=== PATIENT | female | born 1955 | race Caucasian/White ===

== ENCOUNTER 2016-11-30 15:09 | Inpatient (IN) | payer OTHER ==
--- NOTE | 2016-11-30 15:29 | EDPHY ---
H & P Stated Complaint: 3 day hx chest pressure,L arm pain. Saw PCP and sent here for eval Time Seen by Provider: 11/30/16 15:21 HPI/ROS: CHIEF COMPLAINT: Chest pain HISTORY OF PRESENT ILLNESS: The patient is a 61 y/o female arriving at the referral of her PCP complaining of chest pain for the last 3 days. Initially, she noticed chest heaviness. By the second day, her pain radiated down her left arm into her elbow and was associated with nausea. Today she's had continued chest heaviness that feels like an "elephant on my chest" with associated sensation of heartburn, though she has no history of GERD. The pain currently radiates to her left scapula and left jaw. She notes associated exertional shortness of breath and dizziness with episodes of diaphoresis. She has never experienced these symptoms previously. No previous cardiac history or respiratory disease. No recent trauma or illness, leg pain, leg swelling, recent travel, or recent surgery. She received aspirin from her PCP directly before coming to the ED. REVIEW OF SYSTEMS: Constitutional: denies: chills, fever, recent illness, recent injury EENTM: denies: blurred vision, double vision, nose congestion Respiratory: denies: cough, shortness of breath Cardiac: see HPI Gastrointestinal/Abdominal: see HPI Genitourinary: denies: dysuria, frequency, hematuria, pain Musculoskeletal: denies: joint pain, muscle pain Skin: denies: lesions, rash, jaundice, bruising Neurological: see HPI Hematologic/Lymphatic: denies: blood clots, easy bleeding, easy bruising Immunologic/allergic: denies: HIV/AIDS, transplant PRIOR MEDICAL HISTORY: Fibromyalgia SOCIAL HISTORY: Non-smoker, at bedside, PCP: Dr. Rush EXAM: GENERAL: Well-appearing, obese and in no acute distress. HEAD: Atraumatic, normocephalic. EYES: Pupils equal round and reactive to light, extraocular movements intact, sclera anicteric, conjunctiva are normal. ENT: TMs normal, nares patent, oropharynx clear without exudates. Moist mucous membranes. NECK: Normal range of motion, supple without lymphadenopathy or JVD. LUNGS: Breath sounds clear to auscultation bilaterally and equal. No wheezes rales or rhonchi. HEART: Regular rate and rhythm without murmurs, rubs or gallops. ABDOMEN: Soft, nontender, normoactive bowel sounds. No guarding, no rebound. No masses appreciated. BACK: No CVA tenderness, no spinal tenderness, step-offs or deformities EXTREMITIES: Normal range of motion, no pitting or edema. No clubbing or cyanosis. NEUROLOGICAL: Cranial nerves II through XII grossly intact. Normal speech, normal gait. 5/5 strength, normal movement in all extremities, normal sensation PSYCH: Normal mood, normal affect. SKIN: Warm, dry, normal turgor, no visible rashes or lesions. Source: Patient - Personal History Current Tetanus Diphtheria and Acellular Pertussis (TDAP): Yes - Medical/Surgical History Hx Asthma: No Hx Chronic Respiratory Disease: No Hx Diabetes: No Hx Cardiac Disease: No Hx Renal Disease: No Hx Cirrhosis: No Hx Alcoholism: No Hx HIV/AIDS: No Hx Splenectomy or Spleen Trauma: No Other PMH: fibromyalgia - Family History Significant Family History: No pertinent family hx - Social History Smoking Status: Never smoked Alcohol Use: Sober Drug Use: None Constitutional: Initial Vital Signs Temperature (C) 36.7 C 11/30/16 15:10 Heart Rate 64 11/30/16 15:10 Respiratory Rate 18 11/30/16 15:10 Blood Pressure 159/97 H 11/30/16 15:10 O2 Sat (%) 94 11/30/16 15:10 O2 Delivery Mode Room Air O2 (L/minute) 96 Allergies/Adverse Reactions: ketorolac tromethamine [From Toradol] Allergy (Severe, Verified 11/30/16 15:16) Anaphylaxis naproxen [From Naprosyn] Allergy (Severe, Verified 11/30/16 15:16) Anaphylaxis Home Medications: Medication Instructions Recorded DULoxetine [Cymbalta 30 MG (*)] 30 mg PO HS 11/30/16 Estrogens,Conjugated [Premarin 0.3 0.3 mg PO HS 11/30/16 MG (*)] Ibuprofen [Motrin (*)] 400 mg PO DAILY PRN 11/30/16 Levothyroxine [Synthroid 100 mcg 100 mcg PO DAILY06 11/30/16 (*)] Pregabalin [Lyrica] 150 mg PO HS 11/30/16 Medical Decision Making - Diagnostics EKG Interpretation: The 12 lead EKG was interpreted by myself. Sinus rhythm rate 55 without ischemic changes. See hard copy and/or "tracemaster" electronic copy for interpretation. Imaging: X-ray: [Chest x-ray] was obtained. I viewed the images myself on the PACS system. My interpretation of the images is: nothing acute. The radiologist interpretation is nothing acute per Dr. Farias. I discussed the x-ray findings with the [patient]. ED Course/Re-evaluation: MDM: This is a healthy 61 y/o female presenting with a 3-day history of chest heaviness. She endorses radiating arm, jaw, and neck pain with associated nausea , diaphoresis, exertional dyspnea, and dizziness. She denies any known cardiac risk factors. Plan for full cardiac workup including EKG, chest x-ray, IV, labs including CBC, CHEM, troponin, lipase, LFTs, d-dimer. 0.4mg SL nitro administered. Patient received aspirin from her PCP prior to arrival in the ED. 1620: Troponin negative, d-dimer negative, chest x-ray negative. Discussed these findings with the patient and recommended admission for provocative cardiac testing due to concerning story. She agrees to admission. Her chest pain has resolved at this time but she continues to have arm pain. 4mg IV Morphine administered. Dr. Neil accepts admission. DIFFERENTIALS: Partial list of the Differential diagnosis considered include but were not limited to: Acute coronary disease, anxiety, PE, pneumonia and although unlikely based on the history and physical exam, I also considered pneumothorax , dissection, pulmonary hypertension. - Data Points Laboratory Results: Laboratory Results 12/01/16 04:45 12/01/16 04:45 Medications Given: Discontinued Medications Sodium Chloride (Ns) 1,000 mls @ 0 mls/hr IV ONCE ONE PRN Reason: Wide Open Stop: 11/30/16 15:31 Last Admin: 11/30/16 15:30 Dose: 1,000 mls Morphine Sulfate (Morphine) 4 mg IVP EDNOW ONE Stop: 11/30/16 16:29 Last Admin: 11/30/16 17:10 Dose: 4 mg Nitroglycerin (Nitrostat) 0.4 mg SL Q5M PRN PRN Reason: Chest Pain Stop: 11/30/16 15:41 Last Admin: 11/30/16 15:39 Dose: 0.4 mg Departure - Departure Disposition: [facility] Inpatient Acute Clinical Impression: Chest pain Qualifiers: Chest pain type: other chest pain Qualifier Code: (R07.89) Other chest pain Condition: Fair Report Scribed for: Benigno Marvin Report Scribed by: Sydni Damico Date of Report: 11/30/16 Time of Report: 15:33
[2016-11-30] MEDS ORDERED: NS 1,000 ML IV ONE (15:30)
[2016-11-30] MEDS ORDERED: NITROGLYCERIN 0.4 MG BTL SL PRN ×2 (15:30→18:01)
--- NOTE | 2016-11-30 15:32 | CPEKG ---
Heart Rate: 55 RR Interval: 1091 P-R Interval: 140 QRSD Interval: 112 QT Interval: 424 QTC Interval: 406 P [place]: 56 QRS [place]: 63 T Wave [place]: 46 EKG Severity - ABNORMAL ECG - EKG Impression: SINUS RHYTHM EKG Impression: NONSPECIFIC INTRAVENTRICULAR CONDUCTION DELAY EKG Impression: BORDERLINE INFERIOR Q WAVES Electronically Signed By: Benigno Marvin 30-Nov-2016 15:41:19
[2016-11-30 15:49] LABS: % IMMATURE GRANULYOCYTES 0.6 % (0.0-1.1); ABSOLUTE IMMATURE GRANULOCYTES 0.04 10^3/uL (0.00-0.10); ADD DIFF? NO; ADD MORPH? NO; ADD SCAN? NO; ATYPICAL LYMPHOCYTE FLAG 10 (0-99); FRAGMENT RBC FLAG 0 (0-99); HEMATOCRIT 42.6 % (38.0-47.0); HEMOGLOBIN 14.6 g/dL (12.6-16.3); LEFT SHIFT FLG 0 (0-99); LIPEMIA HEMOLYSIS FLAG 90 (0-99); MEAN CELL HEMOGLOBIN CONCENTR. 34.3 g/dL (32.4-36.7); MEAN CELL VOLUME 90.4 fL (81.5-99.8); PLATELET CLUMPS FLAG 0 (0-99); PLATELET COUNT 217 10^3/uL (150-400); RED BLOOD CELL COUNT 4.71 10^6/uL (4.18-5.33); RED CELL DISTRIBUTION WIDTH 13.2 % (11.5-15.2)
[2016-11-30 16:07] LABS: ALANINE AMINOTRANSFERASE 65 IU/L (9-52); ALBUMIN 4.3 g/dL (3.5-5.0); ALKALINE PHOSPHATASE 80 IU/L (38-126); ANION GAP 12 mEq/L (8-16); ASPARTATE AMINOTRANSFERASE 48 IU/L (14-46); BILIRUBIN,TOTAL 0.5 mg/dL (0.1-1.4); BILIRUBIN-CONJUGATED 0.2 mg/dL (0.0-0.5); BILIRUBIN-UNCONJUGATED 0.3 mg/dL (0.0-1.1); CALCIUM 9.5 mg/dL (8.5-10.4); CARBON DIOXIDE 26 mEq/l (22-31); CHLORIDE 102 mEq/L (97-110); CREATININE 0.8 mg/dL (0.6-1.0); GLOMERULAR FILTRATION RATE > 60; GLUCOSE 87 mg/dL (70-100); SODIUM 140 mEq/L (134-144); TOTAL PROTEIN 7.2 g/dL (6.3-8.2)
--- NOTE | 2016-11-30 16:10 | DX ---
PA and lateral chest History: Chest pain and pressure. Comparison: None available. Findings: The lungs are clear. There is no pneumothorax or pleural effusion. Heart size is upper no rmal. Degenerative changes are present in the spine. Impression: No acute findings in the chest.
[2016-11-30 16:18] LABS: TROPONIN I < 0.012 ng/mL (0-0.034)
[2016-11-30] MEDS ORDERED: ONDANSETRON DISINTEGRATING 4 MG TAB PO PRN (18:01)
[2016-11-30] MEDS ORDERED: ONDANSETRON 4 MG/2 ML VIAL IVP PRN (18:01)
--- NOTE | 2016-11-30 19:38 | PDGENHP ---
History and Physical - Chief Complaint Acute chest pain - History of Present Illness PCP: Dr. Rush HPI: 61-year-old female presenting with acute chest pain characterized as a pressure sensation with associated jaw pain located in her right jaw and elbow pain located in her left elbow as well as shortness of breath and diaphoresis exacerbated by exertion. Onset of symptoms was approximately 3 days ago and duration has been intermittent thereafter. Patient's pain in her elbow also seems to exacerbate nausea symptoms and all of the symptoms were present when patient presented to the emergency department from her PCP's office today the symptoms were alleviated by sublingual nitroglycerin. She reports that she is normally able to walk up a regular flight of stairs without becoming winded and this has changed over the past couple days such that ambulating upstairs now leaves the patient significantly short of breath. Patient denies ever experiencing similar symptoms in the past. History Information - Allergies/Home Medication List Allergies/Adverse Reactions: ketorolac tromethamine [From Toradol] Allergy (Severe, Verified 11/30/16 15:16) Anaphylaxis naproxen [From Naprosyn] Allergy (Severe, Verified 11/30/16 15:16) Anaphylaxis Home Medications: DULoxetine [Cymbalta 30 MG (*)] 30 mg PO HS 11/30/16 [Last Taken 11/29/16] Estrogens,Conjugated [Premarin 0.3 MG (*)] 0.3 mg PO HS 11/30/16 [Last Taken ] Ibuprofen [Motrin (*)] 400 mg PO DAILY PRN 11/30/16 [Last Taken 11/25/16] Levothyroxine [Synthroid 100 mcg (*)] 100 mcg PO DAILY06 11/30/16 [Last Taken ] Pregabalin [Lyrica] 150 mg PO HS 11/30/16 [Last Taken 11/29/16] I have personally reviewed and updated: family history, medical history, social history, surgical history - Past Medical History hyperlipidemia (Patient has been intolerant to statins with myositis her symptoms) Additional medical history: Chronic neuropathic pain - Surgical History Reports: no pertinent surgical hx - Family History Additional family history: Father with myocardial infarction and heavy smoking history in his 60s - Social History Smoking Status: Never smoked Alcohol Use: Rarely Drug Use: None Additional social history: Normally independent in her ADLs Review of Systems ROS: 10pt was reviewed & negative except for what was stated in HPI & below Cardiac: Reports: chest pain Respiratory: Reports: shortness of breath Gastrointestinal: Reports: nausea Muscolosketal: Reports: other (Elbow pain) Physical Exam Temp Pulse Resp BP Pulse Ox 36.5 C 53 L 15 140/85 H 95 11/30/16 18:10 11/30/16 18:10 11/30/16 18:10 11/30/16 18:10 11/30/16 18:10 O2 (L/minute) 2 Constitutional: no apparent distress, appears nourished, not in pain, obese, No uncomfortable Eyes: PERRL, anicteric sclera, EOMI Ears, Nose, Mouth, Throat: moist mucous membranes, hearing normal, ears appear normal, no oral mucosal ulcers Cardiovascular: regular rate and rhythym, no murmur, rub, or gallop, No edema Respiratory: no respiratory distress, no rales or rhonchi, clear to auscultation Gastrointestinal: normoactive bowel sounds, soft, non-tender abdomen, no palpable masses Skin: warm, normal color, no rashes or abrasions, no fluctuance, no induration, No mottled Musculoskeletal: other (Full range of motion bilateral shoulders without any pain elicited, full range of motion left elbow without any pain, no elbow effusion or tenderness to palpation) Neurologic: AAOx3, sensation intact bilaterally, weakness Psychiatric: interacting appropriately, not anxious, not encephalopathic, thought process linear Lab Data & Imaging Review 11/30/16 15:40 11/30/16 15:40 WBC 7.12 10^3/uL (3.80-9.50) 11/30/16 15:40 RBC 4.71 10^6/uL (4.18-5.33) 11/30/16 15:40 Hgb 14.6 g/dL (12.6-16.3) 11/30/16 15:40 Hct 42.6 % (38.0-47.0) 11/30/16 15:40 MCV 90.4 fL (81.5-99.8) 11/30/16 15:40 MCH 31.0 pg (27.9-34.1) 11/30/16 15:40 MCHC 34.3 g/dL (32.4-36.7) 11/30/16 15:40 RDW 13.2 % (11.5-15.2) 11/30/16 15:40 Plt Count 217 10^3/uL (150-400) 11/30/16 15:40 MPV 10.0 fL (8.7-11.7) 11/30/16 15:40 Neut % (Auto) 49.2 % (39.3-74.2) 11/30/16 15:40 Lymph % (Auto) 39.5 % (15.0-45.0) 11/30/16 15:40 [place] % (Auto) 8.7 % (4.5-13.0) 11/30/16 15:40 Eos % (Auto) 1.4 % (0.6-7.6) 11/30/16 15:40 Baso % (Auto) 0.6 % (0.3-1.7) 11/30/16 15:40 Nucleat RBC Rel Count 0.0 % (0.0-0.2) 11/30/16 15:40 Absolute Neuts (auto) 3.51 10^3/uL (1.70-6.50) 11/30/16 15:40 Absolute Lymphs (auto) 2.81 10^3/uL (1.00-3.00) 11/30/16 15:40 Absolute Monos (auto) 0.62 10^3/uL (0.30-0.80) 11/30/16 15:40 Absolute Eos (auto) 0.10 10^3/uL (0.03-0.40) 11/30/16 15:40 Absolute Basos (auto) 0.04 10^3/uL (0.02-0.10) 11/30/16 15:40 Absolute Nucleated RBC 0.00 10^3/uL (0-0.01) 11/30/16 15:40 Immature Gran % 0.6 % (0.0-1.1) 11/30/16 15:40 Immature Gran # 0.04 10^3/uL (0.00-0.10) 11/30/16 15:40 D-Dimer 0.31 ug/mLFEU (0.00-0.50) 11/30/16 15:40 Sodium 140 mEq/L (134-144) 11/30/16 15:40 Potassium 4.0 mEq/L (3.5-5.2) 11/30/16 15:40 Chloride 102 mEq/L (97-110) 11/30/16 15:40 Carbon Dioxide 26 mEq/l (22-31) 11/30/16 15:40 Anion Gap 12 mEq/L (8-16) 11/30/16 15:40 BUN 14 mg/dL (7-23) 11/30/16 15:40 Creatinine 0.8 mg/dL (0.6-1.0) 11/30/16 15:40 Estimated GFR > 60 11/30/16 15:40 Glucose 87 mg/dL (70-100) 11/30/16 15:40 Calcium 9.5 mg/dL (8.5-10.4) 11/30/16 15:40 Total Bilirubin 0.5 mg/dL (0.1-1.4) 11/30/16 15:40 Conjugated Bilirubin 0.2 mg/dL (0.0-0.5) 11/30/16 15:40 Unconjugated Bilirubin 0.3 mg/dL (0.0-1.1) 11/30/16 15:40 AST 48 IU/L (14-46) H 11/30/16 15:40 ALT 65 IU/L (9-52) H 11/30/16 15:40 Alkaline Phosphatase 80 IU/L (38-126) 11/30/16 15:40 Troponin I < 0.012 ng/mL (0-0.034) 11/30/16 15:40 Total Protein 7.2 g/dL (6.3-8.2) 11/30/16 15:40 Albumin 4.3 g/dL (3.5-5.0) 11/30/16 15:40 Lipase 154.0 IU/L (23-300) 11/30/16 15:40 Visualized and Interpreted EKG results: Yes EKG Interpretation: Positive for: other (Normal sinus rhythm with intraventricular conduction delay) Assessment & Plan Assessment: 61-year-old female presents with acute chest pain in the setting of hyperlipidemia Plan: 1. Chest pain. Acute, new problem this provider, further workup indicated. Potential etiologies include stable versus unstable angina versus neuropathic pain syndrome, patient does provide a story which is highly concerning for cardiomyopathy versus angina -pulmonary embolism ruled out with D-dimer -continue cycle troponins, continue to monitor on telemetry -if enzymes negative, get a nuclear medicine Lexiscan stress test in a.m. and if ejection fraction is abnormal, then get echocardiogram -continue to monitor center pain and treat symptomatically overnight with Tylenol morphine and sublingual nitroglycerin if needed 2. Hyperlipidemia. Chronic, patient has been intolerant to statins in the past and she is currently attempting dietary modification -reviewed outside records (LDL from 03/30/16 174) -repeat lipid panel Diet. Regular diet with NPO after midnight Prophylaxis. Low risk, SCDs Code. Full Disposition. Anticipated discharge is 12/01/2016, pending further workup and stabilization of the above. I have discussed the patient's presentation with Dr. Marvin and I both agree that the patient has a highly concerning story for possible cardiac cause of her chest discomfort warranting urgent cardiac risk stratification and admission to our [facility].
[2016-11-30] MEDS ORDERED: PREGABALIN 150 MG PO SCH (21:00)
[2016-11-30] MEDS: ACETAMINOPHEN 325 MG TAB PO PRN (21:25)
[2016-11-30] MEDS: PREGABALIN 75 MG CAP PO SCH (21:26)
[2016-11-30] MEDS: DULoxetine 30 MG CAP PO SCH (21:30)
[2016-11-30] MEDS: ESTROGENS,CONJUGATED 0.3 MG TAB PO SCH (21:31)
[2016-11-30] MEDS: TEMAZEPAM 15 MG CAP PO PRN (22:15)
[2016-12-01] MEDS: ACETAMINOPHEN 325 MG TAB PO PRN (04:45)
[2016-12-01 05:22] LABS: % IMMATURE GRANULYOCYTES 0.5 % (0.0-1.1); ABSOLUTE IMMATURE GRANULOCYTES 0.03 10^3/uL (0.00-0.10); ADD DIFF? NO; ADD MORPH? NO; ADD SCAN? NO; ATYPICAL LYMPHOCYTE FLAG 0 (0-99); FRAGMENT RBC FLAG 0 (0-99); LEFT SHIFT FLG 0 (0-99); LIPEMIA HEMOLYSIS FLAG 80 (0-99); MEAN CELL HEMOGLOBIN 31.2 pg (27.9-34.1); MEAN CELL HEMOGLOBIN CONCENTR. 33.3 g/dL (32.4-36.7); MEAN CELL VOLUME 93.5 fL (81.5-99.8); MEAN PLATELET VOLUME 10.3 fL (8.7-11.7); PLATELET CLUMPS FLAG 0 (0-99); PLATELET COUNT 218 10^3/uL (150-400); RED BLOOD CELL COUNT 4.49 10^6/uL (4.18-5.33); RED CELL DISTRIBUTION WIDTH 13.5 % (11.5-15.2)
[2016-12-01 05:46] LABS: ALANINE AMINOTRANSFERASE 60 IU/L (9-52); ALBUMIN 3.8 g/dL (3.5-5.0); ALKALINE PHOSPHATASE 70 IU/L (38-126); ANION GAP 7 mEq/L (8-16); ASPARTATE AMINOTRANSFERASE 37 IU/L (14-46); BILIRUBIN,TOTAL 0.5 mg/dL (0.1-1.4); CALCIUM 9.2 mg/dL (8.5-10.4); CARBON DIOXIDE 28 mEq/l (22-31); CHLORIDE 106 mEq/L (97-110); CHOLESTEROL 243 mg/dL (140-220); CHOLESTEROL/HDL RATIO 2.73 RATIO (1.00-4.44); CREATININE 0.7 mg/dL (0.6-1.0); GLOMERULAR FILTRATION RATE > 60; GLUCOSE 85 mg/dL (70-100); HIGH DENSITY LIPOPROTEIN 89 mg/dL (40-85); LDL/HDL RATIO 1.49 RATIO (1.00-3.22); LOW DENSITY LIPOPROTEIN 133 mg/dL (80-100); NON-HIGH DENSITY LIPOPROTEIN 154 mg/dL (90-129); POTASSIUM 4.6 mEq/L (3.5-5.2); SODIUM 141 mEq/L (134-144); TOTAL PROTEIN 6.4 g/dL (6.3-8.2); TRIGLYCERIDE 108 mg/dL (35-135); VERY LOW DENSITY LIPOPROTEINS 21 mg/dL (8-25)
[2016-12-01 05:58] LABS: TROPONIN I < 0.012 ng/mL (0-0.034)
[2016-12-01] MEDS: LEVOTHYROXINE 100 MCG TAB PO SCH ×2 (05:59→08:02)
[2016-12-01] MEDS ORDERED: REGADENOSON 0.4 MG/5 ML SYR IVP ONE (11:06)
--- NOTE | 2016-12-01 11:52 | CPR ---
[f rep st] NONINVASIVE CARDIAC PROCEDURE REPORT DATE OF PROCEDURE: 12/01/2016 PROCEDURE: Lexiscan stress test. CHIEF COMPLAINT: Chest pain. No history of known coronary artery disease. PROCEDURE IN DETAIL: After informed consent, patient received IV Lexiscan and nuclear tracer injecti on without issues or complications. She had stable vital signs, blood pressure, and rhythm throughou t. She rapidly recovered to the baseline state after her Lexiscan and nuclear tracer images. CONCLUSION: Noneventful Lexiscan tracer injections. Nuclear imaging dictated under separate report. /[id number]/MODL
[2016-12-01] MEDS: ASPIRIN 325 MG TAB PO SCH (13:57)
--- NOTE | 2016-12-01 14:18 | HOSPPROG ---
Hospitalist Progress Note Assessment/Plan: Assessment: 61-year-old female presents with acute chest pain in the setting of hyperlipidemia 1. Chest pain (resolved) -neg troponin -abnormal stress images await rest images to be done 12/02/16 2. Hyperlipidemia. Chronic, Prophylaxis. Low risk, SCDs Code. Full change to inpatient status given need for further diagnostic testing Subjective: no chest pain. no sob. feels well Objective: Vital Signs Temp Pulse Resp BP Pulse Ox 36.3 C 55 L 14 127/74 H 94 12/01/16 11:59 12/01/16 11:59 12/01/16 11:59 12/01/16 11:59 12/01/16 11:59 Laboratory Results 12/01/16 04:45 12/01/16 04:45 11/30/16 12/01/16 12/02/16 05:59 05:59 05:59 Intake Total 1000 Balance 1000 Laboratory Tests 11/30/16 11/30/16 12/01/16 15:40 22:08 04:45 Troponin I < 0.012 < 0.012 < 0.012 TSH 0.914 - Physical Exam Constitutional: no apparent distress, appears nourished, not in pain Cardiovascular: regular rate and rhythym, no murmur, rub, or gallop Respiratory: no respiratory distress, no rales or rhonchi, clear to auscultation ICD10 Worksheet Patient Problems: Problems Problem Status Diagnosed Chest pain Acute
[2016-12-01] MEDS: DULoxetine 30 MG CAP PO SCH (22:28)
[2016-12-01] MEDS: TEMAZEPAM 15 MG CAP PO PRN (22:28)
[2016-12-01] MEDS: PREGABALIN 75 MG CAP PO SCH (22:29)
[2016-12-01] MEDS: ESTROGENS,CONJUGATED 0.3 MG TAB PO SCH (22:32)
[2016-12-02] MEDS: LEVOTHYROXINE 100 MCG TAB PO SCH (07:12)
--- NOTE | 2016-12-02 11:28 | NM ---
Nuclear Medicine Myocardial Perfusion Scan Clinical History: 61-year-old female admitted with chest and jaw pain, and has had 3 negative serum t roponin levels. Rule out myocardial ischemia. Radiopharmaceutical: 26.1 mCi of IV technetium 99m sestamibi Cardiolite (stress portion), and 22.0 m Ci of IV technetium 99 sestamibi Cardiolite (rest portion) Medical Pharmaceutical: 0.4 mg of IV Lexiscan. Comparison Study: None. Technique: After the respective rest and stress sequences, images were acquired tomographically and r econstructed along the standard cardiac axes. The study was gated, and reviewed on the computer works tation using [employer] software. Findings: The post-stress and rest sequences demonstrate a relatively fixed left ventricular apical defect. In reviewing the computer data, there is equivocal damion-infarct ischemia identified on the re perfusion bull's eye quantitative data. However, the left ventricular contractility appears relativel y normal, with a computer-generated LVEF of 65%. I reviewed these images with Dr. Roselia Curiel. Impression: Essentially fixed left ventricular apical defect (with equivocal damion-infarct ischemia, and a normal left ventricular contractility. A test result has been communicated to a licensed care provider and documented in [employer], 11:18:49 A M, 12/02/2016, [employer] Message ID [id number].
[2016-12-02] MEDS ORDERED: fentaNYL 100 MCG/2 ML INJ ONE (13:10)
[2016-12-02] MEDS ORDERED: LIDOCAINE 1% 30 ML SDV ONE (13:10)
[2016-12-02] MEDS ORDERED: MIDAZOLAM 2 MG/2 ML VIAL ONE (13:10)
[2016-12-02] MEDS ORDERED: IOPAMIDOL (ISOVUE 370) 100 ML BTL IV ONE (13:11)
--- NOTE | 2016-12-02 13:35 | GCON ---
[f rep st] CONSULTATION CARDIOLOGY CONSULT. DATE OF CONSULTATION: 12/02/2016 CHIEF COMPLAINT: Chest pain. HISTORY OF PRESENT ILLNESS: We were asked by Dr. Lee to visit with Maia. The patient is a pleasa nt 61-year-old female with dyslipidemia intolerant of statins. She also has fibromyalgia. No histor y of diabetes or hypertension. She does have a family history with father having a bypass in his 50s . She reports that she has not felt well for several days. Over the past 5 days, she has noticed inter mittent chest heaviness like "an elephant sitting on my chest." This is associated with radiation of the pain to her left arm and neck, as well as a burning sensation in her chest. Symptoms were worse with exertion such as walking stairs. With exertion, she felt diaphoretic and dyspneic as well. Chidi cortez also had some associated nausea. No palpitations or syncope. No heart failure. She had presented to Dr. Rush's office, and he sent her to the ER for further evaluation given the concerning nature of her chest pain. She has been admitted for observation. Serial troponins have been negative. EKG is nonischemic. She did have a Lexiscan nuclear stress test. I personally revie wed these images with Radiology. She does have a fixed apical defect that either represents apical i nfarct with a minimal amount of infarct ischemia versus artifact. Ejection fraction is preserved. Since admission, she has had off and on chest discomfort at a much lower level. REVIEW OF SYSTEMS: A full 10-point review of systems is performed and is negative except that which is outlined in the history of present illness. She does not have any major bleeding diatheses. ALLERGIES: Ketorolac and naproxen cause anaphylaxis. She has been getting aspirin here without diff iculty. She has also been intolerant of statin. PAST MEDICAL HISTORY: 1. Dyslipidemia. 2. Hypothyroidism. 3. Fibromyalgia. 4. History of hysterectomy. OUTPATIENT MEDICATIONS: Cymbalta 30 mg daily, Lyrica 150 mg at night, ibuprofen, estrogen 0.3 mg fatemeh ly, and Synthroid 100 mcg daily. SOCIAL: Patient has a partner. He is at the bedside. She does not smoke cigarettes or drink alcoho l. FAMILY HISTORY: Father had a bypass in his 50s. PHYSICAL EXAM: VITAL SIGNS: Blood pressure 118/71, heart rate 65, oxygen saturation 94% on room air . She is afebrile. GENERAL: Well-appearing older female in no acute distress. HEENT: Sclerae are clear and free of jaundice. Mucous members are moist. CARDIOVASCULAR: JVP less than 10. Carotids equal regular rate and rhythm without murmur, rub, or gallop. LUNGS: Clear to auscultatio n bilaterally without wheezes, rhonchi, or rales. ABDOMEN: Soft, nontender, nondistended without br uits, masses or hepatosplenomegaly. EXTREMITIES: Warm and well-perfused without cyanosis, clubbing, or edema. NEURO: Alert and oriented x3 without gross focal neurologic deficits. Appropriate mood and affect. DATA: CBC is essentially normal, except for slight lymphocyte predominance. D-dimer is negative. C omprehensive metabolic panel is normal, except for slightly elevated ALT at 60. Troponin negative x3 . TSH normal. LDL 133. HDL 89. Lipase is normal. EKG reviewed by me: Sinus rhythm without ischemic changes. Chest x-ray, reviewed by me: No acute c ardiopulmonary process. Nuclear medicine stress images reviewed by me as detailed above. ASSESSMENT AND PLAN: A 61-year-old female with risk factors of overweight, dyslipidemia, family hist ory. She presents with intermittent symptoms for several days very concerning for unstable angina. Her EKG initially is nonischemic. Troponins have been negative. However, she continues to have vagu e chest discomfort. Her nuclear stress test is also not completely normal, consistent with either ar tifact or apical infarct. 1. Chest pain: Again, concerning for unstable angina. Stress is low to moderate risk. Risks, bene fits and alternatives of coronary angiogram were discussed, and she agrees to proceed. This will be performed today. She has been tolerating aspirin, but does have an anaphylactic allergy to ketorolac and naproxen. We will follow her closely for any signs of allergy. 2. Dyslipidemia: Her LDL is not at goal. She apparently has been intolerant of statins. We will r eaddress this depending on whether or not she has coronary disease based on her angiogram. 3. Hypothyroidism: TSH is normal. 4. Fibromyalgia: She states that her current symptoms are nothing like her fibromyalgia. 5. Hormone replacement therapy: She is weaning this off. I encouraged her to not be on long-term h ormone replacement therapy. Thank you for allowing us to participate in the care of Ms. Casey. We will follow with you. /[id number]/MODL
[2016-12-02] MEDS: ASPIRIN 325 MG TAB PO SCH (13:56)
[2016-12-02 14:09] LABS: INR 1.09 (0.83-1.16)
[2016-12-02] MEDS ORDERED: ATROPINE SULFATE 1 MG/10 ML SYR IVP PRN (14:10)
[2016-12-02 14:11] LABS: APTT 71.1 SEC (23.0-38.0)
--- NOTE | 2016-12-02 14:15 | PDDXCAT ---
Diagnostic Cath Note - . Date: 12/02/16 Unit Supervisor: Veena Indication: CCC Class III and IV angina on medical treatment - Procedure Access: right groin Procedure: left heart catheterization, coronary angiography, left ventriculogram - Materials Left Heart Cath size: 6F Left Heart Cath materials: JL3.5, JR4.0, pigtail - Findings-Left Heart Catheterization LM: normal LAD: with large branching D1. No CAD LCX: normal. single large OM RCA: dominant. Normal LVEF: 70%. Normal wall motion Wall motion: normal - Findings-Right Heart Catheterization AO: 124/67. LV 115/8. no Complications: none Estimated blood loss: <50ml Closure method: Angioseal Assessment: Normal coronary arteries and normal LV filling pressures. Normal LVEF and LV wall motion. Eval for noncardiac sources of CP. Stable for discharge after bedrest protocol complete Patient Problems: Problems Problem Status Diagnosed Chest pain Acute
[2016-12-02] MEDS ORDERED: PANTOPRAZOLE SODIUM 40 MG TAB PO SCH (14:30)
--- NOTE | 2016-12-02 14:36 | GDS ---
[f rep st] DISCHARGE SUMMARY DISCHARGE DIAGNOSES: 1. Atypical chest pain, most likely musculoskeletal or due to gastroesophageal reflux disease. 2. Dyslipidemia. 3. Hypothyroidism. 4. History of fibromyalgia. CONSULTATIONS: Dr. Roselia Curiel, [facility]. HOSPITAL COURSE AND STAY BY PROBLEM: Atypical chest pain: The patient was placed on observation, wh ere serial troponins were done which were unremarkable. Stress portion of a nuclear stress test whic h were done on 12/01/2016, which were abnormal showing apical defect. Subsequently, the patient stay ed in the hospital until December 02, where she had a resting portion of the test which revealed an e ssentially fixed left ventricular apical defect. Given the patient's exertional symptoms and concern for underlying acute coronary syndrome, I consulted Roselia Curiel, who took the patient for cardiac cat heterization on day of discharge which was negative for flow-limiting stenosis. PHYSICAL EXAM: VITAL SIGNS: On day of discharge blood pressure 127/77, pulse 64, respiratory rate 1 5, O2 sat 94% on room air. GENERAL: No acute distress. HEART: S1, S2. LUNGS: Clear. PERTINENT LABS AND STUDIES DONE THIS HOSPITAL STAY: Cardiac catheterization done 12/02/2016: Refer to report. Myocardial perfusion scan done: Refer to report. DISCHARGE MEDICATIONS: Please refer to discharge medication reconciliation in [facility] for full deta ils. DISCHARGE INSTRUCTIONS: The patient will be discharged from the hospital, where she should follow up with her primary care provider for routine hospital followup. Her LDL is not at goal and she has be en intolerant of statins in the past. She should further discuss this with her primary care provider on an outpatient basis. /[id number]/MODL
[2016-12-02 18:02] VITALS: BP 137/73; PULSE 55; RESP 15; O2SAT 95
[2016-12-02 18:22] VITALS: TEMP 97.2
== END 2016-12-02 18:36 | disposition home or self-care (01) | DRG 287 ==
LOC: F1N 17:38 → OBSVTOIN 12-01 14:19
PROVIDERS: ADMIT Internal Medicine; ATTEND Family Medicine
PROC: 4A023N7 Measurement of Cardiac Sampling and Pressure, Left Heart, Percutaneous Approach (ICD-10-PCS; principal; 2016-12-02)
PROC: B2151ZZ Fluoroscopy of Left Heart using Low Osmolar Contrast (ICD-10-PCS; principal; 2016-12-02)
PROC: B2111ZZ Fluoroscopy of Multiple Coronary Arteries using Low Osmolar Contrast (ICD-10-PCS; principal; 2016-12-02)
DX: R07.89 Other chest pain (principal); K21.9 Gastro-esophageal reflux disease without esophagitis; E78.5 Hyperlipidemia, unspecified; E03.9 Hypothyroidism, unspecified; M79.7 Fibromyalgia
CPT/HCPCS: 96374; A9500; C1760; G0378; J1644; J2250; J2785; J3010; Q9967